=== PATIENT | male | born 1980 | race Caucasian/White ===

== ENCOUNTER 2019-02-14 10:13 | Outpatient (CLI) | payer SELFPAY ==
[2019-02-14 10:18] VITALS: BP 114/68
== END 2019-02-14 11:05 | disposition home or self-care (01) ==
LOC: ORTHO 10:13
PROVIDERS: ATTEND Orthopaedic Surgery
DX: S52.591D Other fractures of lower end of right radius, subsequent encounter for closed fracture with routine healing (principal); V68 Occupant of heavy transport vehicle injured in noncollision transport accident
CPT/HCPCS: 73110; A4590; G0463